=== PATIENT | male | born 1995 | race Two or more races ===

== ENCOUNTER 2025-02-17 11:34 | Emergency (ER) | payer OTHER ==
[2025-02-17] MEDS: ACETAMINOPHEN TAB 500 MG TAB PO STA (11:55)
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
[2025-02-17] MEDS: KETOROLAC 15 MG/ML 1 ML VIAL IM STA (12:00)
--- NOTE | 2025-02-17 12:22 | XR ---
EXAMINATION TYPE: XR hand complete RT, XR wrist complete RT DATE OF EXAM: 02/17/2025 12:17 PM COMPARISON: None. CLINICAL INDICATION: Male, 29 years old with history of Injury, pain TECHNIQUE: XR hand complete RT, XR wrist complete RT XX views were obtained. FINDINGS: Angulated fracture at the fifth metacarpal neck with callus formation indicating nonacute fracture. T here is comminuted fracture with intra-articular extension at the base of the fifth metacarpal which appears acute. There is also fracture at the neck of the fourth metacarpal with mild displacement and angulation. Soft tissue swelling as discussed. IMPRESSION: Fractures as noted above [facility], , 02/17/2025 12:19 PM
[2025-02-17 13:17] VITALS: BP 130/86; PULSE 70; RESP 18; TEMP 98.7
== END 2025-02-17 13:18 | disposition home or self-care (01) ==
LOC: EC 11:34
DX: S62.314A Displaced fracture of base of fourth metacarpal bone, right hand, initial encounter for closed fracture (principal); S62.316A Displaced fracture of base of fifth metacarpal bone, right hand, initial encounter for closed fracture; F19.20 Other psychoactive substance dependence, uncomplicated; F17.200 Nicotine dependence, unspecified, uncomplicated; X58.XXXA Exposure to other specified factors, initial encounter
CPT/HCPCS: 73110; 73130; 99283; 96372; 29125; J1885